=== PATIENT | female | born 1985 | race African-American/Black ===

== ENCOUNTER 2024-01-10 21:33 | Emergency (ER) | payer OTHER, SELFPAY ==
[2024-01-10 21:40] VITALS: BP 147/92; PULSE 100; RESP 22; TEMP 36.9; O2SAT 100; BMI 26.5
--- NOTE | 2024-01-10 21:58 | DI.RAD.S_ITS ---
PROCEDURE: XR CHEST 1V INDICATIONS: chest pain TECHNIQUE: One view of the chest was acquired. COMPARISON: None. FINDINGS: Surgical changes and devices: None. Lungs and pleura: Lungs are clear. No pleural effusions or pneumothorax. Mediastinum: Mediastinal contours appear normal. Heart size is normal. Bones and chest wall: No suspicious bony lesions. Overlying soft tissues appear unremarkable. IMPRESSION: No acute cardiopulmonary abnormality is seen. Dictated by: Ernesto Kennedy M.D. on 01/11/2024 at 0:32 Approved by: Ernesto Kennedy M.D. on 01/11/2024 at 0:32
--- NOTE | 2024-01-10 22:07 | EKG_ITS ---
[facility] [address] [place] [id number] Test Date: 2024-01-10 Pat Name: Adeline Guerrero Department: [facility] Room: Gender: Female [employer] Meter Clerk: JULES Bella : 1985 Requested By: Order Number: [id number] Reading MD: Rey Chen MD Measurements Intervals Anthony Rate: 88 P: 81 MA: 152 QRS: 37 QRSD: 78 T: 33 QT: 368 QTc: 445 Interpretive Statements Normal sinus rhythm Electronically Signed On 01-11-2024 7:34:45 PDT by Rey Chen MD
[2024-01-10 22:31] LABS: Add Manual Diff / Slide Review NO; Basophils Absolute Auto 0 /uL (0-100); Basophils Percent Auto 0.5 % (0-2); Eosinophils Absolute Auto 0 /uL (0-450); Eosinophils Percent Auto 0.3 % (2-4); Hematocrit 34.6 % (36-46); Hemoglobin 11.7 g/dL (12.0-16.0); Lymphocytes Absolute Auto 2600 /uL (1100-4500); Mean Corpuscular HGB Conc 33.8 % (30-36); Mean Corpuscular Hemoglobin 28.5 PG (26-34); Mean Corpuscular Volume 84.3 fL (80-100); Monocytes Absolute Auto 600 /uL (0-900); Monocytes Percent Auto 6.2 % (3-14); Neutrophils Absolute Auto 6600 /uL (1500-7000); Platelet Count 425 X10^3/uL (150-400); Red Cell Distribution Width 14.9 % (11.6-14.8); White Blood Cell Count 9.8 X10^3/uL (4.5-11.0)
[2024-01-10 22:43] LABS: INR 0.9 (0.9-1.3); Prothrombin Time 10.8 SECONDS (9.4-12.5)
[2024-01-10 22:46] LABS: PTT Partial Thromboplastin Tim 28 SECONDS (25.1-36.5)
[2024-01-10 22:49] LABS: Alanine Aminotransferase 18 IU/L (<35); Albumin 4.3 g/dL (3.5-5.0); Albumin Globulin Ratio 1.3 (1.0-2.8); Alkaline Phosphatase 69 U/L (38-126); Aspartate Aminotransferase 26 IU/L (14-36); BUN Creatinine Ratio 12.9 (6-22); Bilirubin Total 0.4 mg/dL (0.2-1.3); Blood Urea Nitrogen 11 mg/dL (7-17); Calcium 10.3 mg/dL (8.4-10.2); Carbon Dioxide 26 mmol/L (22-32); Chloride 105 mmol/L (98-107); Creatine Kinase 73 U/L (30-135); Estimated Glomerular Filt Rate > 60 mL/min (>60); Globulin 3.2 g/dL (1.7-4.1); Glucose 101 mg/dL (70-100); HEMOLYSIS < 15 (0-50); Lipase 249 U/L (23-300); Magnesium 1.9 mg/dL (1.6-2.3); Potassium 4.1 mmol/L (3.4-5.1); Sodium 138 mmol/L (137-145); Total Protein 7.5 g/dL (6.3-8.2)
[2024-01-10 23:00] LABS: NT-proBNP (BNP-Adult 18+) 38 pg/mL (<125); Troponin I < 0.012 ng/mL (0.01-0.034)
[2024-01-10 23:21] VITALS: BP 150/88; PULSE 81; RESP 16; O2SAT 100
[2024-01-11 00:22] VITALS: BP 154/91
[2024-01-11 00:23] VITALS: PULSE 79; O2SAT 100
[2024-01-11 00:30] VITALS: BP 144/96; PULSE 78; O2SAT 100
--- NOTE | 2024-01-11 00:32 | ED.SEIZURE ---
HPI - Seizure General Chief Complaint: Seizure Stated Complaint: near syncopal episodes Time Seen by Provider: 01/10/24 22:09 Source: patient Mode of arrival: Ambulatory Limitations: no limitations History of Present Illness HPI Narrative: 38-year-old female was smoking marijuana with her female friend about 1:00 p.m. today, then an hour and a half later seemed to have difficulty expressing herself, inability to get words out, her friend did not feel similarly, her friend seemed to recognize that patient was having difficulty with speaking, 911 was called, they apparently did an assessment in patient was improving in her symptoms, no transportation to medical facility at that time. Subsequently patient had further improvement, but some frontal headache that has been persistent. No hives or swelling or itching or wheezing or shortness of breath associated symptoms. She never had such a reaction to marijuana in the past, unclear if there might be some other substance in the joint that they were smoking this time. No other drug use known. No recent medication changes. No change in medical regimen. No recent illness symptoms such as fever, cough, shortness of breath, nausea, vomiting, dysuria frequency of urination, rashes. She had no incontinence of urine or stool. She had some brief tremulousness, but no actual loss of consciousness, no known seizures in the past. She is largely recovered except for frontal headache, has not taken any medication for this. Related Data Previous Rx's Medication Instructions Recorded ibuprofen 600 mg tablet 600 mg PO Q6HP PRN #30 tabs 01/05/17 norethindrone 1 mg-ethinyl 1 tab PO QDAY ##1 02/09/17 estradiol 10 mcg (24)-iron 10 mcg(2) tablet (Lo Loestrin Fe) Allergies Allergy/AdvReac Type Severity Reaction Status Date / Time No Known Allergies Allergy Uncoded 09/12/17 12:40 Review of Systems Review of Systems Narrative: see HPI Patient History Social History Smoking Status: Current every day smoker Smoking Status: Current every day smoker tobacco type: vaping alcohol intake frequency: a few times a week Substance Use Type: marijuana Exam Narrative Exam Narrative: GENERAL: Well-developed patient, in mild distress. HEAD: Atraumatic. Normocephalic. EYES: Pupils equal round and reactive. Extraocular motions intact. No scleral icterus. No injection or drainage. ENT: Nose without bleeding, purulent drainage. Throat without erythema, tonsillar hypertrophy or exudate. Airway patent. NECK: Trachea midline. Non tender CARDIOVASCULAR: Regular rate and rhythm without murmurs, gallops, or rubs. RESPIRATORY: Clear to auscultation. Breath sounds equal bilaterally. No wheezes, rales, or rhonchi. GASTROINTESTINAL: Abdomen soft, non-tender, nondistended. EXTREMITIES: No edema or joint tenderness. BACK: Nontender without deformity or crepitance. No flank tenderness. NEURO: AOx3. SKIN: No rash or erythema of visible areas Initial Vital Signs Initial Vital Signs: Vital Signs Temperature 98.5 F 01/10/24 21:40 Pulse Rate 100 H 01/10/24 21:40 Respiratory Rate 22 01/10/24 21:40 Blood Pressure 147/92 H 01/10/24 21:40 Pulse Oximetry 100 01/10/24 21:40 Oxygen Delivery Method Room Air 01/10/24 21:40 Course Orders Ordered: ED Orders 01/10/24 21:58 XR chest 1V Stat EKG-12 Lead Stat 01/10/24 22:20 Complete Blood Count AUTO DIFF Stat Comprehensive Metabolic Panel Stat Lipase Stat Magnesium Stat NT-proBNP (BNP-Adult 18+) Stat PTT Partial Thromboplastin Kapil Stat Prothrombin Time INR Stat Troponin & CK Cardiac Panel Stat 01/10/24 23:20 Urine Drug Screen, Rapid Stat 01/11/24 00:23 Urine Culture Stat Urine Microscopic Stat Discontinued Medications Acetaminophen (Acetaminophen 325 Mg Tablet) 650 mg PO NOW ONE Stop: 01/11/24 00:55 Last Admin: 01/11/24 01:08 Dose: 650 mg Documented By: SALIMA Ibuprofen (Ibuprofen 400 Mg Tablet) 400 mg PO NOW ONE Stop: 01/11/24 00:55 Last Admin: 01/11/24 01:08 Dose: 400 mg Documented By: SALIMA Vital Signs Vital signs: Vital Signs - 8 hr 01/10/24 21:40 01/10/24 23:21 01/11/24 00:22 Temperature 98.5 F Pulse Rate 100 H 81 Respiratory Rate 22 16 Blood Pressure 147/92 H 150/88 H 154/91 H Pulse Oximetry 100 100 Oxygen Delivery Method Room Air Room Air 01/11/24 00:23 01/11/24 00:30 01/11/24 00:30 Temperature Pulse Rate 79 78 Respiratory Rate Blood Pressure 144/96 H Pulse Oximetry 100 100 Oxygen Delivery Method Room Air 01/11/24 01:00 01/11/24 01:00 Temperature Pulse Rate 80 Respiratory Rate 18 Blood Pressure 137/92 H Pulse Oximetry 100 Oxygen Delivery Method MDM - Seizure Lab Data Attestation: I reviewed the patient's lab results. 01/10/24 22:20 01/10/24 22:20 Labs: Lab Results 01/10/24 01/11/24 Range/Units 22:20 00:23 WBC 9.8 (4.5-11.0) X10^3/uL RBC 4.10 (4.0-5.2) X10^6/uL Hgb 11.7 L (12.0-16.0) g/dL Hct 34.6 L (36-46) % MCV 84.3 (80-100) fL MCH 28.5 (26-34) PG MCHC 33.8 (30-36) % RDW 14.9 H (11.6-14.8) % Plt Count 425 H (150-400) X10^3/uL Neut % (Auto) 67.0 (50-75) % Lymph % (Auto) 26.0 (25-40) % [place] % (Auto) 6.2 (3-14) % Eos % (Auto) 0.3 L (2-4) % Baso % (Auto) 0.5 (0-2) % Neut # (Auto) 6600 (2202-4653) /uL Lymph # (Auto) 2600 (9958-2308) /uL [place] # (Auto) 600 (0-900) /uL Eos # (Auto) 0 (0-450) /uL Baso # (Auto) 0 (0-100) /uL PT 10.8 (9.4-12.5) SECONDS INR 0.9 (0.9-1.3) APTT 28 (25.1-36.5) SECONDS Sodium 138 (137-145) mmol/L Potassium 4.1 (3.4-5.1) mmol/L Chloride 105 (98-107) mmol/L Carbon Dioxide 26 (22-32) mmol/L BUN 11 (7-17) mg/dL Creatinine 0.85 (0.52-1.04) mg/dL Estimated GFR > 60 (>60) mL/min BUN/Creatinine Ratio 12.9 (6-22) Glucose 101 H (70-100) mg/dL Calcium 10.3 H (8.4-10.2) mg/dL Magnesium 1.9 (1.6-2.3) mg/dL Total Bilirubin 0.4 (0.2-1.3) mg/dL AST 26 (14-36) IU/L ALT 18 (<35) IU/L Alkaline Phosphatase 69 (38-126) U/L Total Creatine Kinase 73 (30-135) U/L Troponin I < 0.012 (0.01-0.034) ng/mL NT-Pro-B Natriuret Pep 38 (<125) pg/mL Total Protein 7.5 (6.3-8.2) g/dL Albumin 4.3 (3.5-5.0) g/dL Globulin 3.2 (1.7-4.1) g/dL Albumin/Globulin Ratio 1.3 (1.0-2.8) Lipase 249 (23-300) U/L Urine RBC 1-5/hpf (0-5/HPF) Urine WBC 5-10/hpf H (0-5/HPF) Ur Squamous Epith Cells 1-5 /hpf (0-5/HPF) Urine Bacteria Few (2-10) H (None) Ur Culture Indicated? Specimen cultured Vol Urine Centrifuged 10ml (spun) U Opiates 300ng/mL cut Negative (Negative) Ur Oxycodone Screen Negative (Negative) Urine Methadone Screen Negative (Negative) Ur Barbiturates Screen Negative (Negative) U Tricyclic Antidepress Negative (Negative) Ur Phencyclidine Scrn Negative (Negative) Ur Amphetamines Screen Positive H (Negative) U Methamphetamines Scrn Negative (Negative) Ur MDMA Scrn (Ecstasy) Negative (Negative) U Benzodiazepines Scrn Negative (Negative) Urine Cocaine Screen Negative (Negative) U Marijuana (THC) Screen Positive H (Negative) Urine pH Normal (Normal) Urine Specific [place] Normal (Normal) Ur Creatinine Normal (Normal) Point of Care Testing Test Results Negative Urine Dip Bedside Urine Glucose Negative Bedside Urine Bilirubin - Negative Bedside Urine Ketone - Negative Urine Specific [place] 1.030 Bedside Urine Occult Blood ++ Bedside Urine pH 6.0 Bedside Urine Protein - Negative Bedside Urine Urobilinogen - Negative Bedside Urine Nitrite - Negative Bedside Urine Leukocytes - Negative Esterase ECG Data Attestation: I personally reviewed and interpreted this ECG as follows: Interpretation: Normal sinus rhythm with rate 88, no obvious ST segment elevation or depression changes. IL 152, QRS 78, QTC 445. MDM Narrative Medical decision making narrative: 38-year-old female had episode of inability to speak after exposure to marijuana joint with her female friend of similar age, symptoms seem to be improved, apparently she had refused EMS transfer earlier in the day, with persistent frontal headache, no trauma or injury, no known seizure disorder. Residual frontal headache, willing to have oral Tylenol/Motrin, ordered. We discussed CT brain imaging, declined for now. Urine tox screen positive for an methamphetamine and marijuana, patient endorses use Adderall as prescription medication. No recreational exposure known to amphetamine. Temporarily her symptoms seem related to exposure to marijuana and/or other substance she was smoking. Seems less likely seizure activity, aphasia/stroke, but could consider. Consider further evaluation as an outpatient with neurology consultation, though she might require referral from her PCP. Advised to avoid drug use for now. Continue chronic medications for now. Take Tylenol and/or Motrin for headache symptoms. Advised to reassessment with the regular doctor in the next couple of days. Return to this/nearest emergency department for any change worsening symptoms or any concerns prior. Home with Discharge Plan Departure Patient Disposition: Home Clinical Impression: Adverse drug reaction, Headache Activity Restrictions/Additional Instructions: Resolved aphasia (inability to speak), with some tremulousness, after exposure to marijuana joint yesterday afternoon, with some persisting frontal headache symptoms, no injury or trauma. No known seizure disorder. Afebrile, unremarkable triage vitals. Screening labs unremarkable. We did discuss advanced imaging such as CT scan brain, declined. Oral Tylenol and Motrin for headache given. Onset of symptoms after joint smoking exposure, suspected drug related adverse reaction. Consider seizure, could also be drug-induced if there is true seizure activity, versus first presentation of seizure disorder which seems less likely. Consider stroke aphasia reaction, although timing after joint exposure more suspicious. Consider anxiety/panic attack, although this sounds atypical and you have not had similar symptoms in the past. Consider Neurology consultation and follow up, though you might require for all from your primary care provider. Avoid marijuana/drug use for now. Follow up with your regular provider to expedite further workup as an outpatient for now. Return to this/nearest emergency department for any change worsening symptoms or any concerns prior Prescriptions: No Action ibuprofen 600 MG tablet 600 mg PO Q6HP PRNQty: 30 0RF norethindrone-e.estradiol-iron [Lo Loestrin Fe] 1 MG/10 MCG tablet 1 tab PO QDAY Qty: 1 11RF Referrals: Flaca Carrero ARNP [Primary Care Provider] - Stand Alone Forms: Patient Portal/API
[2024-01-11 00:34] LABS: Ur Creatinine Normal (Normal); Ur Specific Gravity Normal (Normal); Urine Amphetamines Positive (Negative); Urine Cocaine Negative (Negative); Urine Opiates Negative (Negative); Urine THC Positive (Negative); Urine pH Normal (Normal)
[2024-01-11 00:35] LABS: Urine Barbiturates Negative (Negative); Urine Benzodiazepines Negative (Negative); Urine MDMA Negative (Negative); Urine Methadone Negative (Negative); Urine Methamphetamines Negative (Negative); Urine Oxycodone Negative (Negative); Urine Phencyclidine Negative (Negative); Urine Tricyclic Antidepressant Negative (Negative)
[2024-01-11 00:41] LABS: Bacteria Urine Few (2-10); Culture Indicated Urine Specimen Cultured; RBC Urine 1-5/HPF (0-5/HPF); Squamous Epithelial Cell Urine 1-5 /HPF (0-5/HPF); Urine Volume 10mL (spun); WBC Urine 5-10/HPF (0-5/HPF)
--- NOTE | 2024-01-11 00:49 | PC.NURSE ---
Pt ambulates independently gait stable from room to bathroom and returned.
[2024-01-11 01:00] VITALS: BP 137/92; PULSE 80; RESP 18; O2SAT 100
[2024-01-11] MEDS: ACETAMINOPHEN 325 MG TABLET 650 MG PO (01:08)
[2024-01-11] MEDS: IBUPROFEN 400 MG TABLET PO (01:08)
== END 2024-01-11 01:22 | disposition home or self-care (01) ==
PROVIDERS: Emergency Provider Emergency Medicine; Family Provider Nurse Practitioner Gerontology; PCP Nurse Practitioner Gerontology
DX: R51.9 Headache, unspecified (principal); T50.905A Adverse effect of unspecified drugs, medicaments and biological substances, initial encounter; F12.90 Cannabis use, unspecified, uncomplicated
CPT/HCPCS: 36415; 71045; 80053; 80305; 81003; 81015; 81025; 82550; 83690; 83735; 83880; 84484; 85025; 85610; 85730; 87086; 93005; 93010; 99284